=== PATIENT | female | born 1955 | race Caucasian/White ===

== ENCOUNTER 2023-06-25 06:26 | Outpatient (RCR) | payer BC, SELFPAY | END 2023-06-25 23:59 | disposition home or self-care (01) | LOC: RPT 06:26 | PROVIDERS: ATTENDING PHYSICIAN Nurse Practitioner Adult Health; FAMILY PHYSICIAN Nurse Practitioner Adult Health | DX: E89.0 Postprocedural hypothyroidism (principal); Z73.6 Limitation of activities due to disability; R29.3 Abnormal posture | CPT/HCPCS: 97110; 97140; 97163; 97530 ==

== ENCOUNTER 2023-07-16 06:46 | Outpatient (RCR) | payer BC, SELFPAY | END 2023-07-16 23:59 | disposition home or self-care (01) | LOC: RPT 06:46 | PROVIDERS: ATTENDING PHYSICIAN Nurse Practitioner Adult Health; FAMILY PHYSICIAN Nurse Practitioner Adult Health | DX: E89.0 Postprocedural hypothyroidism (principal); R29.3 Abnormal posture | CPT/HCPCS: 97110; 97140; 97530 ==

== ENCOUNTER 2023-08-27 06:54 | Outpatient (RCR) | payer BC, SELFPAY | END 2023-08-27 23:59 | disposition home or self-care (01) | LOC: RPT 06:54 | PROVIDERS: ATTENDING PHYSICIAN Nurse Practitioner Adult Health; FAMILY PHYSICIAN Nurse Practitioner Adult Health | DX: E89.0 Postprocedural hypothyroidism (principal); Z73.6 Limitation of activities due to disability; R29.3 Abnormal posture | CPT/HCPCS: 97110; 97140; 97530 ==

== ENCOUNTER 2023-09-26 06:22 | Outpatient (RCR) | payer BC, MEDICARE, SELFPAY | END 2023-09-26 23:59 | disposition home or self-care (01) | LOC: RPT 06:22 | PROVIDERS: ATTENDING PHYSICIAN Nurse Practitioner Adult Health; FAMILY PHYSICIAN Nurse Practitioner Adult Health | DX: E89.0 Postprocedural hypothyroidism (principal); R53.82 Chronic fatigue, unspecified; R29.3 Abnormal posture; L90.5 Scar conditions and fibrosis of skin; Z73.6 Limitation of activities due to disability | CPT/HCPCS: 97110; 97112; 97140; 97530 ==

== ENCOUNTER 2023-10-17 10:15 | Outpatient (RCR) | payer MEDICARE, SELFPAY | END 2023-10-17 23:59 | disposition home or self-care (01) | LOC: RPT 10:15 | PROVIDERS: ATTENDING PHYSICIAN Nurse Practitioner Adult Health; FAMILY PHYSICIAN Nurse Practitioner Adult Health | DX: E89.0 Postprocedural hypothyroidism (principal); R53.82 Chronic fatigue, unspecified; R29.3 Abnormal posture; L90.5 Scar conditions and fibrosis of skin; M62.81 Muscle weakness (generalized) | CPT/HCPCS: 97110; 97530 ==

== ENCOUNTER → 2023-10-30 13:49 | Outpatient (REF) | payer MEDICARE, SELFPAY | LOC: HWRAD 13:49 | PROVIDERS: ATTENDING PHYSICIAN Nurse Practitioner Adult Health; REFERRING PHYSICIAN Chiropractor | DX: M25.571 Pain in right ankle and joints of right foot (principal) | CPT/HCPCS: 73610 ==

== ENCOUNTER 2023-11-27 13:05 | Outpatient (RCR) | payer MEDICARE, SELFPAY | END 2023-11-27 23:59 | disposition home or self-care (01) | LOC: RPT 13:05 | PROVIDERS: ATTENDING PHYSICIAN Nurse Practitioner Adult Health; FAMILY PHYSICIAN Nurse Practitioner Adult Health | DX: M62.81 Muscle weakness (generalized) (principal); R53.82 Chronic fatigue, unspecified; L90.5 Scar conditions and fibrosis of skin; Z73.6 Limitation of activities due to disability | CPT/HCPCS: 97010; 97110; 97112; 97140; 97530 ==

== ENCOUNTER 2023-12-26 09:13 | Outpatient (RCR) | payer MEDICARE, SELFPAY | END 2023-12-26 23:59 | disposition home or self-care (01) | LOC: RPT 09:13 | PROVIDERS: ATTENDING PHYSICIAN Nurse Practitioner Adult Health; FAMILY PHYSICIAN Nurse Practitioner Adult Health | DX: E89.0 Postprocedural hypothyroidism (principal); R53.82 Chronic fatigue, unspecified; Z73.6 Limitation of activities due to disability; R29.3 Abnormal posture; M62.81 Muscle weakness (generalized); L90.5 Scar conditions and fibrosis of skin | CPT/HCPCS: 97110; 97140; 97530 ==

== ENCOUNTER 2024-01-19 08:25 | Outpatient (RCR) | payer MEDICARE, SELFPAY | END 2024-01-19 23:59 | disposition home or self-care (01) | LOC: RPT 08:25 | PROVIDERS: ATTENDING PHYSICIAN Nurse Practitioner Adult Health; FAMILY PHYSICIAN Nurse Practitioner Adult Health | DX: E89.0 Postprocedural hypothyroidism (principal); R53.83 Other fatigue; R53.82 Chronic fatigue, unspecified; Z73.6 Limitation of activities due to disability; R29.3 Abnormal posture; M62.81 Muscle weakness (generalized); L90.5 Scar conditions and fibrosis of skin | CPT/HCPCS: 97110; 97140; 97530 ==

== ENCOUNTER → 2024-02-25 07:31 | Outpatient (REF) | payer MEDICARE, SELFPAY | LOC: WDC 07:31 | PROVIDERS: ATTENDING PHYSICIAN Nurse Practitioner Adult Health; FAMILY PHYSICIAN Nurse Practitioner Adult Health | DX: Z12.31 Encounter for screening mammogram for malignant neoplasm of breast (principal) | CPT/HCPCS: 77063; 77067 ==

== ENCOUNTER 2024-03-03 07:33 | Outpatient (RCR) | payer MEDICARE, SELFPAY | END 2024-03-03 10:37 | disposition home or self-care (01) | LOC: RPT 07:33 | PROVIDERS: ATTENDING PHYSICIAN Nurse Practitioner Adult Health; FAMILY PHYSICIAN Nurse Practitioner Adult Health | DX: E89.0 Postprocedural hypothyroidism (principal); R53.82 Chronic fatigue, unspecified; Z73.6 Limitation of activities due to disability; R29.3 Abnormal posture; M62.81 Muscle weakness (generalized); L90.5 Scar conditions and fibrosis of skin | CPT/HCPCS: 97110; 97530 ==

== ENCOUNTER → 2024-07-21 11:34 | Outpatient (REF) | payer MEDICARE, SELFPAY | LOC: HWRAD 11:34 | PROVIDERS: ATTENDING PHYSICIAN Internal Medicine; FAMILY PHYSICIAN Nurse Practitioner Adult Health | DX: I10 Essential (primary) hypertension (principal); Z82.49 Family history of ischemic heart disease and other diseases of the circulatory system; E78.00 Pure hypercholesterolemia, unspecified | CPT/HCPCS: 75571 ==

== ENCOUNTER 2024-11-05 04:34 | Emergency (ER) | payer MEDICARE, SELFPAY ==
[2024-11-05 04:44] VITALS: BP 156/98
[2024-11-05 04:55] VITALS: BMI 28.6
[2024-11-05 05:14] LABS: % Basophils 0.4 % (0-2); % Eosinophils 1.2 % (0-6); % Immature Granulocytes 0.2 % (0-0.5); % Lymphocytes 29.2 % (20.5-51.1); Absolute Eosinophils 0.1 10^3/uL (0-0.7); Absolute Lymphocytes 1.5 10^3/uL (1.2-3.4); Absolute Monocytes 0.4 10^3/uL (0.1-0.6); Absolute Neutrophils 3.1 10^3/uL (1.4-6.5); Hematocrit 37.7 % (37.0-47.0); Mean Corp Hgb Conc. 34.5 g/dL (33.0-37.0); Mean Corpuscular Hgb 29.7 pg (27.0-31.0); Mean Corpuscular Volume 86.1 fL (81.0-99.0); Mean Platelet Volume 8.7 fL (7.4-10.4); Nucleated Red Blood Cells % 0 %; Platelet Count 203 10^3/uL (130-400); Red Blood Cell Count 4.38 10^6/uL (4.20-5.40); Red Cell Dist. Width 12.5 % (11.5-14.5)
[2024-11-05 05:18] VITALS: BP 177/86
--- NOTE | 2024-11-05 05:27 | ED.GENMED ---
History of Present Illness
<Spencer Martin DO - Last Filed: 11/05/24 06:27>
General
Chief Complaint: Chest Pain
Source: patient and family
Exam Limitations: none
Time Seen by Provider: 11/05/24 04:52
Nursing documentation reviewed up to this point in time: agreed with
History of Present Illness
History of Present Illness:
This is a pleasant 69-year-old female presents to the emergency department with chest pain that awakened her from sleep around 3:30 AM. She denies current chest pain or shortness of breath. Patient is followed by Dr. Stubbs for her hypertension.
Denies any previous cardiac events. Reports no cardiac equivalents. Denies fever, chills, nausea or vomiting.
Past History
<DO Dinora Roper Last Filed: 11/05/24 06:27>
Past History
ED Past Medical History: GERD, HTN and Other (Sinuse infections, TMJ, Ovarian cyst); Negative NIDDM or CO
ED Past Surgical History: Cholecystectomy (10/10), and Other (Sinus surg)
Social History
Tobacco: Non-smoker
Alcohol: Occasional (wine, 1-2 glasses/day)
Personal:
Living: with family
Employment: Employed
Family History
Family History: Hypertension
Review of Systems
<DO Dinora Roper Last Filed: 11/05/24 06:27>
Review of Systems
Allergies reviewed?: Yes
Other source history: family
All Other Systems: ROS reviewed and negative except as documented in HPI and ROS
Constitutional: Reports no symptoms
EENT: Reports no symptoms
Respiratory: Reports no symptoms
Cardiac: Reports chest pain
ABD/GI: Reports no symptoms
: Reports no symptoms
Musculoskeletal: Reports no symptoms
Skin: Reports no symptoms
Neurological: Reports no symptoms
Endocrine: Reports no symptoms
Hematologic/Lymphatic: Reports no symptoms
Psychiatric: Reports no symptoms
Phy Exam
<DO Dinora Roper Last Filed: 11/05/24 06:27>
General Physical Exam
General Presentation: well appearing and no apparent distress
General Skin: warm and dry
General Habitus: normal
General Mental: alert
General Hydration: appears well hydrated
ENT Exam
ENT Exam: EOMI, pharynx normal, neck supple and normocephalic
Eye Exam
Eye Exam: PERRL, cornea clear and conjunctiva normal
Cardiovascular Exam
Cardiovascular Exam: regular rate/rhythm, no edema, no murmur and normal peripheral pulses
Pulmonary Exam
Pulmonary Exam: lungs clear, no respiratory distress, no rales, no crackles, no rhonchi, no stridor, no wheezing and no cough
Gastrointestinal Exam
Gastrointestinal Exam: normal bowel sounds, non tender, soft, no organomegaly, no pulsatile mass and non distended
Neurological Exam
Neurological Exam: alert, oriented x3, no motor deficits and speech normal
Musculoskeletal Exam
Musculoskeletal Exam: full ROM and no edema
Skin Exam
Skin Exam: normal color, warm/dry, no rash and no petechia
Psychiatric Exam
Psychiatric Exam: normal mood/affect and anxious
Scores
<Spencer Martin DO - Last Filed: 11/05/24 06:27>
Heart Score for Chest Pain Patients
STEMI patient?: No
History: Slightly or Non-Suspicious
ECG: Normal
Age: >/= 65 years
Risk Factors: 1 or 2 Risk Factors
Troponin: </= Normal Limit
Heart Score for Chest Pain Patients: 3
Heart Score Risk: 2.5% MACE over next 6 weeks
<Al Kulkarni DO - Last Filed: 11/05/24 07:59>
Heart Score for Chest Pain Patients
Heart Score for Chest Pain Patients: 3
Heart Score Risk: 2.5% MACE over next 6 weeks
Course
<Spencer Martin, DO - Last Filed: 11/05/24 06:27>
Orders/Labs/Results
Orders:
Orders
11/05/24 04:35
Electrocardiogram (*1) Urgent
Reason for Study: Other
Other Reason for Exam: Respiratory Distress
Cardiac Monitoring- Treatment ONCE
EKG- Treatment ONCE
IV Insert/Care/Rem.- Treatment PRN
CR Chest - 2 Views Urgent
Comment:
Reason For Exam: respiratory distress
O2 Therapy [RESP] Urgent
Titrate/Wean O2 to maintain O2 sat greater than (%): 93
Special Instructions: TO MAINTAIN CONTINUOUS O2 SATS >/= 93%
Pulse Ox/cont/shift [RESP] Urgent
Quantity: 1
Special Instructions: continuous pulse ox
11/05/24 05:04
Complete Blood Count/With Diff Urgent
Comprehensive Metabolic Panel Urgent
NT-proBNP Urgent
Troponin I Urgent
11/05/24 05:26
Carvedilol [Coreg] 6.25 mg PO NOW STA
Valsartan [Diovan] 160 mg PO NOW STA
11/05/24 05:28
Aspirin 325 mg PO NOW STA
11/05/24 05:53
Electrocardiogram (*1) Urgent
Reason for Study: Chest Pain
EKG- Treatment ONCE
11/05/24 07:05
Troponin I Urgent
Abnormal Lab Results
11/05/24
05:04
Glucose 114 H mg/dl
(70-99)
11/05/24 05:04
11/05/24 05:04
Vital Signs
Initial and Last Documented VS:
Initial Vital Signs
Temp Pulse Resp BP Pulse Ox
36.9 C 81 20 156/98 96
11/05/24 04:44 11/05/24 04:44 11/05/24 04:44 11/05/24 04:44 11/05/24 04:44
Last Documented Vital Signs
Temp Pulse Resp BP Pulse Ox
36.9 C 57 13 143/72 94
11/05/24 04:44 11/05/24 07:15 11/05/24 07:15 11/05/24 07:09 11/05/24 07:15
<Al Kulkarni, DO - Last Filed: 11/05/24 07:59>
Orders/Labs/Results
Orders:
Orders
11/05/24 04:35
Electrocardiogram (*1) Urgent
Reason for Study: Other
Other Reason for Exam: Respiratory Distress
Cardiac Monitoring- Treatment ONCE
EKG- Treatment ONCE
IV Insert/Care/Rem.- Treatment PRN
CR Chest - 2 Views Urgent
Comment:
Reason For Exam: respiratory distress
O2 Therapy [RESP] Urgent
Titrate/Wean O2 to maintain O2 sat greater than (%): 93
Special Instructions: TO MAINTAIN CONTINUOUS O2 SATS >/= 93%
Pulse Ox/cont/shift [RESP] Urgent
Quantity: 1
Special Instructions: continuous pulse ox
11/05/24 05:04
Complete Blood Count/With Diff Urgent
Comprehensive Metabolic Panel Urgent
NT-proBNP Urgent
Troponin I Urgent
11/05/24 05:26
Carvedilol [Coreg] 6.25 mg PO NOW STA
Valsartan [Diovan] 160 mg PO NOW STA
11/05/24 05:28
Aspirin 325 mg PO NOW STA
11/05/24 05:53
Electrocardiogram (*1) Urgent
Reason for Study: Chest Pain
EKG- Treatment ONCE
11/05/24 07:05
Troponin I Urgent
Abnormal Lab Results
11/05/24
05:04
Glucose 114 H mg/dl
(70-99)
11/05/24 05:04
11/05/24 05:04
Vital Signs
Initial and Last Documented VS:
Initial Vital Signs
Temp Pulse Resp BP Pulse Ox
36.9 C 81 20 156/98 96
11/05/24 04:44 11/05/24 04:44 11/05/24 04:44 11/05/24 04:44 11/05/24 04:44
Last Documented Vital Signs
Temp Pulse Resp BP Pulse Ox
36.9 C 57 13 143/72 94
11/05/24 04:44 11/05/24 07:15 11/05/24 07:15 11/05/24 07:09 11/05/24 07:15
<Spencer Martin DO - Last Filed: 11/05/24 06:27>
MDM/Problems Addressed
Differential Diagnosis Includes:
ACS, musculoskeletal chest pain, pleurisy,
Chronic conditions affecting care:
Previous chest pain, hypertension, thyroid cancer
<Spencer Martin DO - Last Filed: 11/05/24 06:27>
*Radiology
Radiology exam reviewed: all reviewed NAD by ED Provider
*Pulse Oximetry
Patient hypoxic: no
*EKG
Interpreted by ED Provider?: Yes
Interpretation: normal
Comparison EKG: no changes
Heart Rate: 80
Rate: normal
Rhythm: sinus
[place]: normal axis
Interval: normal interval
QRS Pattern: normal QRS
Ischemia: no ischemia
*Client Technical Specialist Interpretation
Rate: normal
Interpretation: normal
Heart Rate: 68
Rhythm: sinus
*Critical Care Note
Total Time (30-74mins, 75-104mins- exclusive of procedures): Not Applicable
<Al Maza Shad, DO - Last Filed: 11/05/24 07:59>
Update Note
Update Note:
I evaluated the patient at bedside it 7:55 AM. Second troponin unchanged and remains less than 0.012. EKG is normal. She continues to have 'an anxious feeling in my chest'. We talked about the possibly of anxiety however we still want her to
follow-up with cardiology. Chest pain hotline used.
ED Attending Note
<Spencer Martin, DO - Last Filed: 11/05/24 06:27>
-
Portions of this chart may have been created with voice recognition software.� Occasional wrong word or��sound alike� substitutions may have occurred due to the inherent limitations of voice recognition software.
Discharge Plan
Departure
Patient Disposition: Home (Routine Discharge)
Date of Disposition: 11/05/24
Time of Disposition: 07:58
Patient with high blood pressure during this ER visit?: Yes
Condition: Good
Discharge Problem:
Chest pain
Instructions: Chest Pain CBC Follow Up, BLOOD PRESSURE
Prescriptions:
No Action
azelastine 1 SPRAY aerosol,spray
2 spray intranasal HS
metoprolol succinate 25 MG tablet extended release 24 hr
12.5 mg PO DAILY
irbesartan [Avapro] 300 MG tablet
150 mg PO Daily
Patient Comments:
alternate with 150mg
dexlansoprazole [Dexilant] 60 MG capsule,biphase delayed releas
60 mg PO DAILY
progesterone micronized 100 MG capsule
100 mg PO Daily
fluticasone furoate [Veramyst] 10 GM spray,suspension
2 spray intranasal Daily
Elisterin
topical Daily
Referrals:
Junaid Stubbs MD [Active] -
Tai Jaramillo CRNP [Family Provider] -
Activity Restrictions/Additional Instructions:
Thank You for choosing [facility].
It was a pleasure meeting you and taking part in your care. We hope for your continued healing and wellness.
Please read discharge instructions in their entirety. However, they are for general education and may not describe your exact diagnosis at discharge. Information on your ER visit and medical conditions were discussed with you along with appropriate
follow up information...
If indicated, please take your medications as instructed and indicated on discharge paperwork.
Please schedule a follow up appointment as directed. Call to schedule an appointment
Please return to the emergency department with ANY change in, persisting, or worsening of symptoms. If any of your symptoms do not improve, or persist, or become more severe within 6-12 hours, please return to the emergency department for further
care.
Please return to the emergency department if you develop a headache, neck pain/stiffness, fever greater than 100.4F, chest pain, shortness of breath, persistent nausea, vomiting, slurred speech, difficulty walking, numbness/tingling, weakness, signs
of infection or any other symptoms that are worrisome to you.
If you have any questions or concerns please do not hesitate to call the Hospital at or E-mail me directly at [email or web address]
Interventions
Interventions:
*Risk Screen - Suicide Last Done: 11/05/24 06:26
*General Assessment Last Done: 11/05/24 04:44
*Neglect/Abuse Screening Last Done: 11/05/24 04:44
*ED- Fall Risk Assessment Last Done: 11/05/24 04:44
*ED COVID-19 Vaccine History Last Done: 11/05/24 04:44
ED- Cardiac Assessment Last Done: 11/05/24 05:13
Discharge Date and Time
Print Language: TUNISIAN
[2024-11-05 05:37] VITALS: BP 141/74
[2024-11-05 05:38] LABS: ALT (SGPT) 24 U/L (0-35); AST (SGOT) 27 U/L (14-36); Albumin 4.4 g/dl (3.5-5.0); Alkaline Phosphatase 56 U/L (38-126); Blood Urea Nitrogen 12 mg/dl (7-17); Calcium 8.9 mg/dl (8.4-10.2); Carbon Dioxide 25 mmol/L (22-30); Chloride 104 mmol/L (98-107); Estimated Creatinine Clearance 107 ml/min; Glucose 114 mg/dl (70-99); Potassium 3.8 mmol/L (3.5-5.1); Sodium 138 mmol/L (135-145); Total Bilirubin 0.8 mg/dl (0.2-1.3); Total Protein 6.6 g/dl (6.3-8.2); eGFR > 60.00
[2024-11-05] MEDS: DIOVAN 160 MG PO (05:38)
[2024-11-05] MEDS: ASPIRIN 325 MG PO (05:38)
[2024-11-05] MEDS: COREG 6.25 MG PO (05:39)
[2024-11-05 05:50] LABS: NT-proBNP 159 pg/ml; Troponin I < 0.012 ng/ml
[2024-11-05 07:09] VITALS: BP 143/72
[2024-11-05 07:54] LABS: Troponin I < 0.012 ng/ml
[2024-11-05 08:00] VITALS: BP 151/80
== END 2024-11-05 09:00 | disposition home or self-care (01) ==
LOC: EMR 04:34
PROVIDERS: EMERGENCY PHYSICIAN Student in an Organized Health Care Education/Training Program; FAMILY PHYSICIAN Nurse Practitioner Adult Health
DX: R07.89 Other chest pain (principal); K21.9 Gastro-esophageal reflux disease without esophagitis; I10 Essential (primary) hypertension; M26.609 Unspecified temporomandibular joint disorder, unspecified side; Z82.49 Family history of ischemic heart disease and other diseases of the circulatory system; Z90.49 Acquired absence of other specified parts of digestive tract
CPT/HCPCS: 99283; 71046; 80053; 83880; 84484; 85025; 93005

== ENCOUNTER → 2024-12-29 08:07 | Outpatient (REF) | payer MEDICARE, SELFPAY | LOC: RCS 08:07 | PROVIDERS: ATTENDING PHYSICIAN Nurse Practitioner; FAMILY PHYSICIAN Nurse Practitioner Adult Health | DX: R07.89 Other chest pain (principal) | CPT/HCPCS: 93017; 93350; Q9950 ==

== ENCOUNTER → 2025-02-10 15:17 | Outpatient (REF) | payer MEDICARE, SELFPAY | LOC: WDC 15:17 | PROVIDERS: ATTENDING PHYSICIAN Nurse Practitioner Adult Health; FAMILY PHYSICIAN Nurse Practitioner Adult Health | DX: Z12.31 Encounter for screening mammogram for malignant neoplasm of breast (principal) | CPT/HCPCS: 77063; 77067 ==

== ENCOUNTER → 2025-05-20 13:05 | Outpatient (REF) | payer MEDICARE, SELFPAY | LOC: REG 13:05 | PROVIDERS: ATTENDING PHYSICIAN Nurse Practitioner Adult Health | DX: M99.02 Segmental and somatic dysfunction of thoracic region (principal); M99.03 Segmental and somatic dysfunction of lumbar region | CPT/HCPCS: 72072; 72110 ==